=== PATIENT | female | born 1990 | race Caucasian/White ===

== ENCOUNTER 2017-11-02 01:33 | Emergency (ER) | payer OTHER ==
[2017-11-02 01:33] VITALS: BMI 26.6
[2017-11-02 01:52] VITALS: RESP 18
[2017-11-02] MEDS ORDERED: Oxycodone/Acetaminophen 5/325 mg Tab PO ONE (02:03)
--- NOTE | 2017-11-02 02:03 | ED PDOC ---
HPI: Skin/Bite Injury Time Seen by Provider: 11/02/17 01:50 Chief Complaint (Nursing): Abnormal Skin Integrity Chief Complaint (Provider): buttock abscess History Per: Patient History/Exam Limitations: no limitations Onset/Duration Of Symptoms: Days (2) Current Symptoms Are (Timing): Still Present Quality Of Symptoms: Painful Additional Complaint(s): 26 y/o female presents for evaluation of painful abscess above buttock x 2 days. Patient reports same a few months ago, had to have it drained at [facility] [place] ED. Denies fever, nausea/vomiting, chills Past Medical History Reviewed: Historical Data, Nursing Documentation, Vital Signs Vital Signs: Last Vital Signs Temp 98.7 F 11/02/17 04:17 Pulse 108 H 11/02/17 04:17 Resp 18 11/02/17 04:17 BP 144/91 H 11/02/17 04:17 Pulse Ox 97 11/02/17 05:03 - Medical History PMH: No Chronic Diseases - Surgical History Other surgeries: ovarian cystectomy - Family History Family History: States: Unknown Family Hx - Immunization History Hx Tetanus Toxoid Vaccination: No Hx Influenza Vaccination: No Hx Pneumococcal Vaccination: No - Home Medications Home Medications: Ambulatory Orders Medication Instructions Recorded Amoxicillin/Clavulanate [Augmentin 1 tab PO BID #14 tab 07/27/17 875 MG-125 MG] Ibuprofen [Motrin] 600 mg PO TID #30 tab 07/27/17 Amoxicillin/Clavulanate [Augmentin 1 tab PO Q12 #13 tab 11/02/17 875 MG-125 MG] - Allergies Allergies/Adverse Reactions: Allergies Allergy/AdvReac Type Severity Reaction Status Date / Time No Known Allergies Allergy Verified 11/02/17 01:50 Review of Systems ROS Statement: Except As Marked, All Systems Reviewed And Found Negative Skin: Positive for: Lesions (buttock abscess) Physical Exam - Reviewed Nursing Documentation Reviewed: Yes Vital Signs Reviewed: Yes - Physical Exam Appears: Positive for: Well, Non-toxic, No Acute Distress Skin: Positive for: Rash ([id number] area of swelling/fluctuance noted to left upper gluteal cleft with mild surrounding erythema; no active drainage. ) Cardiovascular/Chest: Positive for: Regular Rate, Rhythm Respiratory: Positive for: Normal Breath Sounds Extremity: Positive for: Normal ROM - ECG O2 Sat by Pulse Oximetry: 97 - Progress ED Course And Treament: Patient notified of + test. Denies abdominal pain, vaginal bleeding/ discharge, urinary symptoms Patient evaluated by executive vice president and chief operating officer on-call; bedside I&D performed. Recommends follow up with surgery in one week. Patient educated on findings, discharged with rx Augmentin (dose given in ED) Advised Tylenol PRN pain Packing removal 48 hours. Follow up with surgery as scheduled Follow up dynamics ax developer. vitamins Return precautions given Disposition - Clinical Impression Clinical Impression: Pilonidal abscess, - Patient ED Disposition Is Patient to be Admitted: No Counseled Patient/Family Regarding: Diagnosis, Need For Followup, Rx Given - Disposition Referrals: Layton Murphy MD [Staff Provider] - Christen Lozoya MD [Primary Care Provider] - [facility] [Outside] Johnathan Patterson DO [Staff Provider] - Disposition: Routine/Home Disposition Time: 04:26 Condition: IMPROVED Prescriptions: Amoxicillin/Clavulanate [Augmentin 875 MG-125 MG] 1 tab PO Q12 #13 tab Instructions: Pilonidal Cyst, Medications and Forms: [facility] ([place])
[2017-11-02] MEDS ORDERED: Povidone Iodine Topical 10% Sol ONE (02:11)
[2017-11-02] MEDS ORDERED: Oxycodone/Acetaminophen 5/325 mg Tab ONE (02:11)
[2017-11-02] MEDS ORDERED: Amoxicillin-Clav 875-125 mg Tab PO STA (04:03)
[2017-11-02 04:14] VITALS: TEMP 98.7
[2017-11-02 04:16] VITALS: BP 144/91
--- NOTE | 2017-11-02 04:16 | CP.PCM.CON ---
History of Present Illness - History of Present Illness History of Present Illness: Surgery Consult note: Dr. Murphy Reason for consult: Gluteal abscess 26F pmhx significant for recent , recurrent gluteal abscess s/p I& D at [facility] on 06/2017, presents to [facility] ED with increased pain at rest for the last two days. Patient has been taking warm soaks and baths to the area. Denies any drainage from the area. Denies fevers, chills, chest pain, shortness of breath, nausea, vomiting diarrhea. PMH: stated above, ovarian cyst PSH: I&D of gluteal abscess ALL: NKDA SocialHx: tobacco use 6 cigarettes/day for 5+ years, social ETOH use, denies recreational drug use FH: denies hx of skin infections, carbuncles, furuncles 12 pt ROS conducted, negative other than stated above Review of Systems - Review of Systems All systems: reviewed and no additional remarkable complaints except - Constitutional Constitutional: As Per HPI Past Patient History - Past Social History Smoking Status: Light Smoker < 10 Cigarettes Daily - GASTROINTESTINAL Hx Gastritis: Yes - PSYCHIATRIC Hx Substance Use: No - SURGICAL HISTORY Hx Surgeries: Yes Other/Comment: removal ovarian cyst - ANESTHESIA Hx Anesthesia: Yes Hx Anesthesia Reactions: No Meds Home Medications: Home Medication List Medication Instructions Recorded Confirmed Type Amoxicillin/Clavulanate [Augmentin 1 tab PO Q12 #13 tab 11/02/17 Rx 875 MG-125 MG] Allergies/Adverse Reactions: Allergies Allergy/AdvReac Type Severity Reaction Status Date / Time No Known Allergies Allergy Verified 11/02/17 01:50 Physical Exam - Constitutional Appears: Non-toxic, No Acute Distress - Head Exam Head Exam: ATRAUMATIC - Eye Exam Eye Exam: EOMI. absent: Scleral icterus - ENT Exam ENT Exam: Mucous Membranes Moist - Respiratory Exam Respiratory Exam: NORMAL BREATHING PATTERN. absent: Accessory Muscle Use, Respiratory Distress - Cardiovascular Exam Cardiovascular Exam: +S1, +S2. absent: Bradycardia, Tachycardia - GI/Abdominal Exam GI & Abdominal Exam: Soft. absent: Distended, Guarding, Rebound, Rigid, Tenderness - Extremities Exam Extremities exam: Positive for: normal inspection. Negative for: calf tenderness - Back Exam Back exam: absent: CVA tenderness (L), CVA tenderness (R) Additional comments: left superior gluteal cleft, fluctuant and indurated. Measuring [id number]. no active draining. erythematous, tender to palpation no tracts appreciated during exam - Neurological Exam Neurological exam: Alert, Oriented x3 - Psychiatric Exam Psychiatric exam: Normal Affect - Skin Skin Exam: Warm Additional comments: erythematous abscess, no active drainage on left superior gluteal cleft Results - Vital Signs Recent Vital Signs: Last Vital Signs Temp 98.3 F 11/02/17 01:50 Pulse 117 H 11/02/17 01:50 Resp 18 11/02/17 01:50 BP 146/85 11/02/17 01:50 Pulse Ox 97 11/02/17 02:05 Assessment & Plan - Assessment and Plan (Free Text) Assessment: 26F w/ recurrent gluteal abscess at left superior gluteal cleft; location indicative of pilonidal cyst Plan: - Incision and drainage at bedside under local anesthesia - consent obtained and signed - packing placed. can be removed after 2 days in shower - PO abx upon discharge - follow up w/ Dr. Murphy in clinic within 1 week - discussed w/ [email or web address]
[2017-11-02 04:17] VITALS: PULSE 108
--- NOTE | 2017-11-02 04:25 | PCM.PROC ---
Incision and Drainage - Time Time Performed: 03:30 - Time Out Time Out: Side verified, Site verified, Patient ID confirmed, Sterile procedures obs. - Procedure Procedure-Incision & Drainage: I&D of recurrent abscess at left superior gluteal cleft; pilonidal cyst - Consent obtained Consent obtained: Written - Indications Indications: Cutaneous abscess - Contraindications Contraindications: None - Location Location: Left, Pilonidal cyst - Dimensions Dimensions Length cm: 8 Dimensions width cm: 4 - Anesthetic Technique Anesthetic Technique: Local - Anesthetic Anesthetic: Lidocaine 1% - Procedure Procedure: Usual prep and drape, cm incision, Overlying area fluctuance, # scalpel used (11), Explored for loculations, Irrigated, Packed with sterile gauze - Drained Drained: ml pus (15) - Post-procedure Post procedure: Tetanus up to date - Complications Complications: None - Patient tolerated procedure Patient tolerated procedure: Well
[2017-11-02 04:28] VITALS: O2SAT 97
== END 2017-11-02 04:34 | disposition home or self-care (01) ==
LOC: H.ER 01:33
DX: L05.01 Pilonidal cyst with abscess (principal); Z33.1 Pregnant state, incidental